=== PATIENT | female | born 1945 | race Caucasian/White ===

== ENCOUNTER → 2017-01-31 | Outpatient (CLI) | payer OTHER ==
[~2017-01-31] MED LIST: ALTOPREV40 MG GT; ANTIBIOTIC TP; ASPIRIN81 M2 PO; CIPRO500 MG PO; COREG6.25 M1 PO; COUMADIN4 MG GT; COUMADIN5 MG PO; DAILY VALUE1 EACH GT; DIFLUCAN200 MG PO; DULCOLAX10 MG PR; FISH OIL 1,0001 EAC7 PO; FLEET ENEMA-AD118 ML PR; FONDAPARIN7.5 MG/0.6 SC; GLUCERNA 1 CAL237 ML GT; KEPPRA1000 MG PO; KEPPRA750 MG GT; KLOR-CON M2020 MEQ GT; LANTUS 10100 UNITS/ SC; LEVETIRACE100 MG/1 M GT; LISINOPRIL2.5 MG GT; LOVASTATIN40 MG GT; METFORMIN HCL500 MG PO; MILK OF MAGNESI10 ML GT; MULTIVITAMIN1 EAC2 GT; MYCELEX10 MG PO; NAMENDA10 MG GT; NOVOLOG 10100 UNITS/ SC; NOVOLOG PE100 UNITS/ SC; OMEPRAZOLE40 M1 PO; OXYCODONE-APAP1 EACH PO; PERCOCET 5/31 TABLET GT; PIOGLITAZONE HC30 MG PO; POTASSIUM20 MEQ/11 GT; PREVACID SOLUTA30 MG GT; PRILOSEC20 MG GT; TUMS500 MG PO; TYLENOL REGULA325 MG PO; VITAMIN C1000 MG PO; ZESTRIL2.5 MG GT; [UNRECOGNIZED DRUG - OTHER] TP
== END | disposition home or self-care (01) ==
LOC: AMB 10:25
PROC: 0DH63UZ Insertion of Feeding Device into Stomach, Percutaneous Approach (ICD-10-PCS; principal; 2017-01-31)
DX: K94.23 Gastrostomy malfunction (principal); R13.10 Dysphagia, unspecified
CPT/HCPCS: 99212; B4087

== ENCOUNTER → 2017-08-22 | Outpatient (CLI) | payer OTHER ==
[~2017-08-22] MED LIST changes: +K-DUR10 MEQ PO; +KEPPRA500 MG PO
== END | disposition home or self-care (01) ==
LOC: AMB 08:30
PROC: 0DH63UZ Insertion of Feeding Device into Stomach, Percutaneous Approach (ICD-10-PCS; principal; 2017-08-22)
DX: K94.23 Gastrostomy malfunction (principal); R13.10 Dysphagia, unspecified
CPT/HCPCS: B4087

== ENCOUNTER → 2017-09-19 | Outpatient (CLI) | payer OTHER | END | disposition home or self-care (01) | LOC: AMB 11:22 | PROC: 0D20XUZ Change Feeding Device in Upper Intestinal Tract, External Approach (ICD-10-PCS; principal; 2017-09-19) | DX: K94.23 Gastrostomy malfunction (principal); R13.10 Dysphagia, unspecified | CPT/HCPCS: 99212 ==

== ENCOUNTER 2018-07-10 17:37 | Emergency (ER) | payer OTHER ==
[~2018-07-10] VITALS: Ht 152.4 cm; Wt 49.0 kg
[~2018-07-10 17:37] MED LIST changes: -GLUCERNA 1 CAL237 ML GT; +GLUCERNA 1 CAL237 ML PO
[2018-07-10 19:03] LABS: HEMATOCRIT 36.5 % (36.0-46.0); HEMOGLOBIN 12.1 G/DL (11.9-15.5); MCH 30.3 PG (29.0-34.0); MCHC 33.2 G/DL (30.0-36.0); MCV 91.5 FL (83-99); PLATELET COUNT 144 K/uL (156-360); RBC DIS.WIDTH-CV 14.4 % (11.8-14.6); RBC DIS.WIDTH-SD 48.4 % (39-53); RED BLOOD COUNT 3.99 M/uL (3.80-5.20); WHITE BLOOD COUNT 7.8 K/uL (4.1-10.2)
[2018-07-10 19:12] LABS: PTT 25.8 SEC (25-37)
[2018-07-10 19:13] LABS: ALBUMIN 3.7 g/dL (3.2-4.8); CHLORIDE 102 mEq/L (99-109); SODIUM 137 mEq/L (136-147)
[2018-07-10 19:15] LABS: GLUCOSE 156 mg/dL (70-99)
[2018-07-10 19:16] LABS: TOTAL PROTEIN 6.9 g/dL (6.4-8.3)
[2018-07-10 19:17] LABS: TOTAL BILIRUBIN 0.4 mg/dL (0.0-1.0)
[2018-07-10 19:19] LABS: ALKALINE PHOSPHATASE 114 IU/L (3-129); CREATININE 0.7 mg/dL (0.6-1.3); GFR ESTIMATE (CALCULATED) > 59 mL/min/
[2018-07-10 19:20] LABS: UREA NITROGEN (BUN) 16 mg/dL (9-23)
[2018-07-10 19:21] LABS: AST (GOT) 22 IU/L (2-34)
[2018-07-10 19:22] LABS: ALT (GPT) 18 IU/L (3-49)
[2018-07-10] MEDS ORDERED: TYLENOL REGULA325 MG GT (20:58)
[2018-07-10 21:45] VITALS: BP 132/62
== END 2018-07-10 21:46 | disposition home or self-care (01) ==
LOC: EME 17:37
PROVIDERS: Emergency Medicine
DX: S79.911A Unspecified injury of right hip, initial encounter (principal); W18.11XA Fall from or off toilet without subsequent striking against object, initial encounter; I69.361 Other paralytic syndrome following cerebral infarction affecting right dominant side; E11.9 Type 2 diabetes mellitus without complications; K21.9 Gastro-esophageal reflux disease without esophagitis; E78.5 Hyperlipidemia, unspecified; R56.9 Unspecified convulsions; I25.10 Atherosclerotic heart disease of native coronary artery without angina pectoris; I25.2 Old myocardial infarction; Z95.1 Presence of aortocoronary bypass graft; Z87.440 Personal history of urinary (tract) infections; Z79.01 Long term (current) use of anticoagulants; Z79.4 Long term (current) use of insulin; Z93.3 Colostomy status; Z88.2 Allergy status to sulfonamides; Z88.1 Allergy status to other antibiotic agents; Z88.0 Allergy status to penicillin
CPT/HCPCS: 70450; 80053; 85027; 85610; 85730; 86850; 86870; 86900; 86901; 86905; 86920; 99281; 99285; J2270

== ENCOUNTER 2018-07-13 18:00 | Observation (INO) | payer OTHER ==
[~2018-07-13] VITALS: Ht 162.6 cm; Wt 52.8 kg
[~2018-07-13 18:00] MED LIST changes: +TYLENOL REGULA325 MG GT
[2018-07-13 20:56] LABS: BASOPHIL (%) 0.3 % (0-1); EOSINOPHIL (%) 3.6 % (0-5); EOSINOPHIL COUNT 0.2 K/uL (0-0.3); HEMATOCRIT 35.9 % (36.0-46.0); HEMOGLOBIN 11.7 G/DL (11.9-15.5); IMMATURE GRANULOCYTE (%) 0.2 % (0.0-0.7); LYMPHOCYTE (%) 27.7 % (15-42); LYMPHOCYTE COUNT 1.6 K/uL (1.0-2.8); MCHC 32.6 G/DL (30.0-36.0); MCV 92.1 FL (83-99); MONOCYTE (%) 6.3 % (3-12); MONOCYTE COUNT 0.4 K/uL (0-0.8); NEUTROPHIL (%) 61.9 % (45-76); NEUTROPHIL COUNT 3.7 K/uL (1.8-6.4); PLATELET COUNT 148 K/uL (156-360); RBC DIS.WIDTH-CV 14.4 % (11.8-14.6); RBC DIS.WIDTH-SD 48.4 % (39-53); WHITE BLOOD COUNT 5.9 K/uL (4.1-10.2)
[2018-07-13 21:02] LABS: PTT 29.2 SEC (25-37)
[2018-07-13 21:10] LABS: CHLORIDE 102 mEq/L (99-109); POTASSIUM 3.9 mEq/L (3.7-5.4); SODIUM 140 mEq/L (136-147)
[2018-07-13 21:12] LABS: GLUCOSE 145 mg/dL (70-99)
[2018-07-13 21:16] LABS: CREATININE 0.7 mg/dL (0.6-1.3); GFR ESTIMATE (CALCULATED) > 59 mL/min/
[2018-07-13 21:17] LABS: UREA NITROGEN (BUN) 21 mg/dL (9-23)
[2018-07-13] MEDS ORDERED: LEVETIRACETAM750 MG PO (21:47)
[2018-07-13] MEDS ORDERED: POTASSIUM CHLO20 ME1 PO (21:47)
[2018-07-13] MEDS ORDERED: LO-DOSE ASPIRIN81 M1 PO (21:48)
[2018-07-14 00:45] VITALS: BP 112/57
[2018-07-14 08:00] VITALS: BP 85/49
[2018-07-14 11:46] VITALS: BP 99/54
[2018-07-14 15:25] VITALS: BP 104/69
[2018-07-15 04:16] VITALS: BP 97/51
[2018-07-15 07:10] VITALS: BP 97/50
[2018-07-15 12:18] VITALS: BP 101/59
[2018-07-15 15:22] VITALS: BP 104/51
[2018-07-15 19:18] VITALS: BP 103/53
[2018-07-16 03:32] VITALS: BP 97/49
[2018-07-16 07:44] VITALS: BP 102/50
[2018-07-16 11:39] VITALS: BP 105/58
[2018-07-16] MEDS ORDERED: HYDROCODON-ACE1 EAC7 GT (14:08)
[2018-07-16 15:48] VITALS: BP 91/50
== END 2018-07-16 15:53 ==
LOC: EME 18:00 → EDOF 22:32 → 4SOUTH 22:32 → EDOF 07-14 00:38 → 4SOUTH 07-14 00:38
PROVIDERS: Emergency Medicine; Hospitalist
DX: G89.11 Acute pain due to trauma (principal); M25.552 Pain in left hip; M25.551 Pain in right hip; M54.5 Low back pain; W18.11XA Fall from or off toilet without subsequent striking against object, initial encounter; I69.351 Hemiplegia and hemiparesis following cerebral infarction affecting right dominant side; I69.320 Aphasia following cerebral infarction; I69.391 Dysphagia following cerebral infarction; R13.10 Dysphagia, unspecified; M48.061 Spinal stenosis, lumbar region without neurogenic claudication; M51.36 Other intervertebral disc degeneration, lumbar region; Z99.3 Dependence on wheelchair; Z93.1 Gastrostomy status; I25.10 Atherosclerotic heart disease of native coronary artery without angina pectoris; Z95.1 Presence of aortocoronary bypass graft; E11.9 Type 2 diabetes mellitus without complications; I10 Essential (primary) hypertension; E78.5 Hyperlipidemia, unspecified; G40.909 Epilepsy, unspecified, not intractable, without status epilepticus; Z86.718 Personal history of other venous thrombosis and embolism; Z90.49 Acquired absence of other specified parts of digestive tract; Z93.3 Colostomy status; M62.59 Muscle wasting and atrophy, not elsewhere classified, multiple sites; F03.90 Unspecified dementia, unspecified severity, without behavioral disturbance, psychotic disturbance, mood disturbance, and anxiety; Z88.0 Allergy status to penicillin; Z88.1 Allergy status to other antibiotic agents; Z88.2 Allergy status to sulfonamides; Z66 Do not resuscitate; Z79.4 Long term (current) use of insulin; Z79.01 Long term (current) use of anticoagulants; Z79.82 Long term (current) use of aspirin
CPT/HCPCS: 72148; 72192; 73721; 80048; 82948; 85025; 85610; 85730; 97530 GO; 99281; 99285; G0378; G8978 GP CK; G8979 CJ; G8980 GP CK; G8987 GO CL; G8988 GO CK; G8989 GO CL; J1644; J2060; J7040